=== PATIENT | female | born 1955 ===

== ENCOUNTER → 2019-08-26 09:05 | Outpatient (CLI) | payer OTHER, SELFPAY ==
--- NOTE | ~2019-08-26 | DEXA_ITS ---
Bone Density Report Name: Rosalina Talavera Age: 64 Sex: Female Ethnicity: White Date of : 1955 Indication: osteopenia; monitoring treatment; postmenopausal Referring Provider: JULIANNA, ISABELA Study: Bone densitometry was performed. Exam Date: August 26, 2019 Accession number: [id number] Bone Density: Region BMD T-score Z-score Classification AP Spine (L1-L4) 0.920 -1.2 0.4 Osteopenia Femoral Neck (Left) 0.713 -1.2 0.2 Osteopenia Total Hip (Left) 0.933 -0.1 1.0 Normal Femoral Neck (Right) 0.692 -1.4 0.0 Osteopenia Total Hip (Right) 0.870 -0.6 0.5 Normal Total Hip Mean 0.902 -0.4 0.8 Normal World Health Organization criteria for BMD impression classify patients as: Normal (T-score at or above -1.0), Osteopenia (T-score between -1.0 and -2.5), or Osteoporosis (T-score at or below -2.5). 10-year Fracture Risk: FRAX not reported because: Treated for osteoporosis Previous Exams: Region Exam Age BMD T-score BMD Change BMD Change Date g/cm2 vs Baseline vs Previous AP Spine(L1-L4) 08/26/2019 64 0.920 -1.2 0.048* 0.019 11/07/2016 61 0.902 -1.3 0.030* -0.020 09/04/2014 59 0.922 -1.1 0.050* 0.050* 08/19/2012 57 0.872 -1.6 Total Hip(Left) 08/26/2019 64 0.933 -0.1 -0.002 0.019 11/07/2016 61 0.914 -0.2 -0.021 -0.009 09/04/2014 59 0.924 -0.2 -0.012 -0.012 08/19/2012 57 0.935 -0.1 Total Hip(Right) 08/26/2019 64 0.870 -0.6 -0.023 -0.013 11/07/2016 61 0.884 -0.5 -0.010 -0.013 09/04/2014 59 0.896 -0.4 0.003 0.003 08/19/2012 57 0.893 -0.4 *Denotes significance at 95% confidence level, LSC for AP Spine = 0.022 g/cm2, LSC for Total Hip = 0.027 g/cm2 Clinical Information Provided by Patient: Is being treated for osteoporosis Has used the following medications: Fosamax (i.e. alendronate), Calcium Patient maximum height was 64.0 Menopause Age: 56 No regular weight bearing exercise Drinks caffeinated beverages Onset of menses at age 15 Number of children 4 Impression: The patient has low bone mass, based on the Right Femoral Neck T-score. No significant bone loss was observed. Discussion: PATIENT UNDER TREATMENT WITH NO SIGNIFICANT BMD LOSS SINCE LAST EXAM. In an untreated patient, BMD typically declines with age. A lack of d
== END ==
PROVIDERS: PCP Emergency Medicine; Visit Provider Nurse Practitioner
DX: M85.89 Other specified disorders of bone density and structure, multiple sites (principal)
CPT/HCPCS: 77080

== ENCOUNTER → 2020-09-03 15:25 | Outpatient (CLI) | payer OTHER, SELFPAY ==
--- NOTE | ~2020-09-03 | MM_ITS ---
EXAMINATION: MM screening [facility] w [facility] HISTORY: Screening TECHNIQUE: Craniocaudal and mediolateral oblique 3-D tomosynthesis images were obtained and synthetic 2-D images were generated. CAD analysis was submitted and interpreted. COMPARISON: Comparison to multiple prior studies sequentially, with oldest reviewed study dated 09/12. BREAST PARENCHYMAL COMPOSITION: There are scattered areas of fibroglandular density. FINDINGS: There is no evidence of suspicious mass, calcification, or architectural distortion to sugg est malignancy in either breast. There has been no suspicious interval change. IMPRESSION: 1. No mammographic evidence of malignancy. 2. Recommend routine screening mammography in one year. BI-RADS Category 1: Negative Reviewed, dictated and finalized at location A.
== END ==
PROVIDERS: PCP Emergency Medicine; Visit Provider Nurse Practitioner
DX: Z12.31 Encounter for screening mammogram for malignant neoplasm of breast (principal)
CPT/HCPCS: 77063; 77067